=== PATIENT | male | born 1955 | race Caucasian/White ===

== ENCOUNTER 2016-11-24 21:07 | Emergency (ER) | payer BC ==
--- NOTE | 2016-11-24 22:03 | EDM.PDOC ---
ED HPI GENERAL MEDICAL PROBLEM - General Chief Complaint: Skin Complaint Stated Complaint: TICK BITE Time Seen by Provider: 11/24/16 21:30 - Related Data Allergies Allergy/AdvReac Type Severity Reaction Status Date / Time cephalexin monohydrate Allergy Cannot Verified 11/24/16 21:14 [From Keflex] Remember Home Meds: Home Meds . [No Known Home Meds] 11/24/16 [History] Past Medical History - Past Health History Medical/Surgical History: Denies Medical/Surgical History Social & Family History - Tobacco Use Smoking Status *Q: Unknown Ever Smoked ED ROS GENERAL - Review of Systems Review Of Systems: ROS reveals no pertinent complaints other than HPI. ED EXAM, SKIN/RASH Exam: See Below Text/Narrative:: 4 x 3 cm red area on back. Exam Limited By: No Limitations General Appearance: Alert, WD/WN Ears: Normal External Exam Nose: Normal Inspection Throat/Mouth: Normal Inspection Head: Atraumatic Respiratory/Chest: No Respiratory Distress Cardiovascular: Normal Peripheral Pulses Skin: Erythema Location, Skin: Back Characteristics: Linear, Erythematous Course - Vital Signs Last Recorded V/S: Last Vital Signs Temp 97 F 11/24/16 21:10 Pulse 77 11/24/16 21:10 Resp 18 11/24/16 21:10 BP 141/85 H 11/24/16 21:10 Pulse Ox 95 11/24/16 21:10 Departure - Departure Time of Disposition: 22:00 (Instructed patient that he will need to have Lyme and [place] spotted fever titers drawn to determine if he has been exposed. the inflammed area on his back did not warrant antibiotics at this time.) Disposition: Home, Self-Care 01 Condition: Good Clinical Impression: Tick bite, Lyme disease - Discharge Information Forms: ED Department Discharge Additional Instructions: follow up with your regular doctor tomorrow for blood work.
== END 2016-11-24 21:45 | disposition home or self-care (01) ==
LOC: CC.ED 21:07
CPT/HCPCS: 99281

== ENCOUNTER → 2020-07-31 | Day surgery (SDC) | payer BC ==
[2020-07-31] MEDS: Lactated Ringers 1,000 ML IV SCH (10:58)
[2020-07-31 12:17] VITALS: BP 112/80; PULSE 69
--- NOTE | 2020-07-31 13:06 | OR ---
DATE OF OPERATION: 07/31/2020 PREOPERATIVE DIAGNOSIS: FAMILY HISTORY OF COLON CANCER. POSTOPERATIVE DIAGNOSIS: FAMILY HISTORY OF COLON CANCER. SURGEON: Emanuel Rivera MD PROCEDURE: FULL-LENGTH COLONOSCOPY WITH FORCEPS POLYP REMOVAL X1. ANESTHESIA: MAC. COMPLICATIONS: None. SPECIMEN: 4-mm tubular adenoma, splenic flexure. FINDINGS: 1. Full-length colonoscopy. 2. Tubular adenoma x1, less than 0.5 cm. RECOMMENDATIONS: Followup colonoscopy in 5 years. INDICATIONS: The patient's father has a recent diagnosis of colon cancer. He is scheduled for that indication. DESCRIPTION OF PROCEDURE: The patient was prepped and draped, placed in the left lateral decubitus position. A lubricated Olympus colonoscope was inserted and easily advanced to the cecum. Direct visualization of the ileocecal valve was accomplished. The bowel prep was adequate. Upon withdrawal of the scope, the cecum, ascending and transverse colons were benign. Just past the splenic flexure on the descending colon side, the patient had a flat 3 to 4 mm adenoma removed in its entirety with 3 forceps biopsies. The rest of the descending colon was benign. In the sigmoid and rectosigmoid area, I could find no other polyps, masses, ulceration, or bleeding sites. No vascular abnormalities or signs of colitis. The rectal vault was benign. Retroflexion showed no anal lesions. Air was suctioned. The scope removed without complication. JIMY/GISSEL /[id number]
== END ==
LOC: CC.SDS 10:46
PROVIDERS: ATTEND Family Medicine
DX: Z12.11 Encounter for screening for malignant neoplasm of colon (principal); D12.3 Benign neoplasm of transverse colon; N40.0 Benign prostatic hyperplasia without lower urinary tract symptoms; Z88.8 Allergy status to other drugs, medicaments and biological substances; Z80.0 Family history of malignant neoplasm of digestive organs; Z79.899 Other long term (current) drug therapy
CPT/HCPCS: 00812; J7120